=== PATIENT | male | born 1995 | race Caucasian/White ===

== ENCOUNTER → 2021-12-06 08:59 | Outpatient (CLI) | payer OTHER, SELFPAY ==
[2021-12-06 11:42] LABS: COVID19 -Nasal RAPID Negative (Negative)
== END ==
PROVIDERS: PCP Nurse Practitioner Family; Visit Provider Surgery
DX: Z20.822 Contact with and (suspected) exposure to COVID-19 (principal); Z01.812 Encounter for preprocedural laboratory examination
CPT/HCPCS: 87635; C9803

== ENCOUNTER 2021-12-07 11:05 | Day surgery (SDC) | payer OTHER, SELFPAY ==
[2021-12-05 12:05] VITALS: BMI 29.8
[2021-12-07] VITALS (7 sets, daily range): BP systolic 106–124; BP diastolic 55–83; PULSE 68–81; RESP 13–16; TEMP 36.1–37.1; O2SAT 96–100; BMI 29.8
--- NOTE | 2021-12-07 | PATH_ITS ---
[facility] Accession Number: [id number] . 01 Material submitted: . buttock - PILONIDAL CYST . 01 Diagnosis: Skin, Site Not Designated, Excision: Pilonidal cyst with microabscess formation. [facility] 12/13/2021 1830 Local . 01 Electronically signed: . Erin Johnson MD, Dermatopathologist NPI- [id number] . 01 Gross description: . The specimen is received in formalin labeled with the patient's name and pilonidal cyst, and consists of an unoriented ellipse of skin measuring 5.4 x 1.2 cm and excised to a depth of 2.0 cm. The margin is inked blue. The specimen is serially sectioned to reveal a cystic structure measuring 2.8 cm in length and 0.1 cm in diameter filled with best grumous material. No lesions are identified. Grain Unloader sections are submitted as follows: . A1: Tips. A2-A3: Grain Unloader sections. ([id number]) /MRV 12/11/2021 1243 Local . 01 Pathologist provided ICD-10: L05.02 . 01 CPT . 633640 Specimen Comment: A courtesy copy of this report has been sent to [phone] Performed at: 01 [facility] [address] [place] [address] [address], [place], [place] [id number] MD Rakan Ballard MD Phone: [phone]
[2021-12-07] MEDS: LACTATED RINGERS 1,000 ML 100 ML IV (12:12)
--- NOTE | 2021-12-07 12:25 | PM.HP.1 ---
History of Present Illness History of Present Illness Date Patient Seen: 12/07/21 Time Patient Seen: 12:25 Chief complaint: [facility] Narrative: 26 y.o man with pilonidal cyst here for elective excision. Please refer to the H&P from 10/2021 for further detail. No interval changes in health. Patient History Medical History Pilonidal cyst Surgical History History of excision of pilonidal cyst Family & Social History Family History Father Hypertension Grandfather Hypertension Diabetes mellitus Grandmother Breast cancer Social History: household members spouse lives independently Yes Tobacco & Substance use: Smoking Status Never smoker alcohol intake never Substance Use Type does not use Meds Home Medications and Allergies Home Medications Medication Instructions Recorded Confirmed Type doxepin 10 mg capsule 10 mg PO BEDTIME 10/26/21 12/07/21 History Allergies Allergy/AdvReac Type Severity Reaction Status Date / Time No Known Drug Allergies Allergy Verified 12/07/21 12:02 Exam Vital Signs (past 8 hours): - 12/07/21 12:13 Temperature 98.8 F Pulse Rate 68 Respiratory Rate 16 Blood Pressure 124/83 Pulse Oximetry 98 Oxygen Delivery Method Room Air Oxygen Delivery Method Room Air Narrative Exam Narrative: Gen-Adult man alert and oriented Assessment & Plan Assessment and plan (1) Pilonidal cyst: Status: Acute Assessment & Plan narrative: 26M here for elective excision of pilonidal cyst. Overview of the operation was discussed with the patient again. Operative risks including bleeding, infection, reoccurrence were discussed. Questions have been answered and he consents to proceed. Time Spent With Patient Critical Care time: I spent a total of [] minutes of critical care time on this patient's care today; this time is exclusive of procedural time.
[2021-12-07] MEDS: CEFAZOLIN 2 GM/100 ML PREMIX 100 ML IV (12:45)
[2021-12-07] MEDS: BUPIVACAINE 0.25% (PF) VIAL 30 ML INJ (13:00)
--- NOTE | 2021-12-07 13:02 | SUR.OPER ---
Prone on padded OR bed, head in foam head support, gel chest rolls, gel pad under knees, pillow under lower legs, toes free of pressure, arms secured on padded arm boards at <90 degrees abduction. Safety belt at thigh.
--- NOTE | 2021-12-07 14:07 | PM.OP.1 ---
Operative Date/Time/Diagnoses Date of procedure: 12/07/21 Time of procedure: 14:08 Pre-op diagnosis: Pilonidal cyst Post-op diagnosis: same Procedure & Clinicians Procedure: Excision of complex pilonidal cyst Same procedure as scheduled: Yes Indications: 26-year-old recurrent pilonidal cyst disease here for elective excision Surgeon: Corby Nicole Anesthesia Type: General Operative Notes Findings: Multiple tunneling cysts Specimen(s): other (pilonidal cyst) Estimated Blood Loss (mL): 20 Procedure in detail: Patient brought to the operating room placed supine on the table. Bilateral lower extremity compression devices were applied. General anesthesia was induced he was intubated with an endotracheal tube. He was then placed into a prone position appropriately padded. He was prepped and draped in sterile fashion. He received 2 g of Ancef prior to skin incision. Time-out was performed. Elliptical incision was made on the lower back just superior to the gluteal cleft to encompass all of the multiple areas of recurrent tunneling pilonidal cyst disease. The incision was carried down through the subcutaneous tissue to the deep fascia. Specimen was excised and passed off the field as pilonidal cyst. Bilateral skin flaps were raised. Hemostasis was achieved. The under laying fascia was then reapproximated with a running 2 0 Vicryl. The subcutaneous tissue was then reapproximated with 2 0 Vicryl in a running fashion. The skin was then closed with interrupted nylon suture. Sterile dressing was placed. He was extubated and transferred to recovery in stable condition. Complications: none Post-operative Condition: stable Disposition: same day surgery
[2021-12-07] MEDS: OXYCODONE IR 5 MG TABLET 10 MG PO (14:13)
== END 2021-12-07 15:02 | disposition home or self-care (01) ==
PROVIDERS: PCP Nurse Practitioner Family; Referring Provider Surgery; Visit Provider Surgery
PROC: (CPT 11772; principal; 2021-12-07 12:30)
DX: L05.02 Pilonidal sinus with abscess (principal)
CPT/HCPCS: 11772; 00700; J0690; J1100; J1170; J2405; J2704